=== PATIENT | female | born 1955 | race Caucasian/White ===

== ENCOUNTER → 2024-02-13 07:55 | Outpatient (REF) | payer MEDICARE, OTHER, SELFPAY | LOC: WDC 07:55 | PROVIDERS: ATTENDING PHYSICIAN Nurse Practitioner Adult Health | DX: Z12.31 Encounter for screening mammogram for malignant neoplasm of breast (principal) | CPT/HCPCS: 77063; 77067 ==

== ENCOUNTER → 2024-05-08 07:01 | Outpatient (REF) | payer MEDICARE, OTHER, SELFPAY | LOC: HWRCS 07:01 | PROVIDERS: ATTENDING PHYSICIAN Nurse Practitioner | DX: R55 Syncope and collapse (principal) | CPT/HCPCS: 93306 ==

== ENCOUNTER → 2024-05-14 08:10 | Outpatient (REF) | payer MEDICARE, OTHER, SELFPAY | LOC: RCS 08:10 | PROVIDERS: ATTENDING PHYSICIAN Nurse Practitioner | DX: R55 Syncope and collapse (principal) | CPT/HCPCS: 93225; 93226 ==

== ENCOUNTER 2025-01-20 07:46 | Emergency (ER) | payer MEDICARE, OTHER, SELFPAY ==
[2025-01-20 07:50] VITALS: BP 141/81
[2025-01-20 09:09] VITALS: BMI 23.0
--- NOTE | 2025-01-20 09:40 | ED.GENMED ---
History of Present Illness
General
Chief Complaint: Eye Problems
Source: patient
Exam Limitations: none
Time Seen by Provider: 01/20/25 09:00
Nursing documentation reviewed up to this point in time: agreed with
History of Present Illness
History of Present Illness:
69 yo female with no clinically significant past medical history reports experiencing pain over her left eyebrow, which began a couple of weeks ago. The pain initially was thought to be sinus-related, as it radiated upwards from the left side of
her nose but concentrated around the eyebrow and upper eyelid. She describes the pain as being particularly intense near the eyebrow. Over the December weekend, the patient experienced swelling and itchiness on her eyelid, for which she saw
her general practitioner. The practitioner recommended the application of 1% hydrocortisone cream and Zyrtec, which successfully resolved the eyelid symptoms. However, the eyebrow pain persisted.
Yesterday, at a constitution party, the patient developed eyeball pain and photophobia affecting both the eye itself and the periorbital area. This morning, she likened the sensation to having previously scratched her cornea, although the itchy and scratched
feelings have resolved. She reports discomfort in the muscles surrounding her eye and notes that her pupil is smaller than usual. Vision is reportedly altered, with light appearing less bright in the affected eye compared to the other.
The patient denies recent changes in visual acuity but reports discomfort with eye movements, similar to muscle ache.
Past History
Past History
ED Past Medical History: None
ED Past Surgical History: Tonsilectomy and Urological
Social History
Tobacco: Non-smoker
Personal:
Living: with family
Employment: Employed
Review of Systems
Review of Systems
Allergies reviewed?: Yes
All Other Systems: ROS reviewed and negative except as documented in HPI and ROS
Constitutional: Denies fever
EENT: Reports other (redness, irritation left eye)
ABD/GI: Denies nausea
Phy Exam
Physical Exam
Physical Exam:
PHYSICAL EXAMINATION:
General: no apparent distress, not acutely ill
Neuro: alert and oriented.
Psychiatric: well kept. interactive and cooperative
Musculoskeletal: Moves with ease
Skin: Warm, pink.
Eye Exam
Eye Exam: PERRL, EOMI, globe normal, visual acuity normal, visual soriano normal and other (Fluorescein stain reveals small corneal abrasion 7 o'clock. Periorbital skin is normal, no significant swelling. Mildly tender to palpate upper eyelid, lid
everted, normal. )
Course
Orders/Labs/Results
Orders:
Orders
01/20/25 09:40
Visual Acuity- Treatment ONCE
01/20/25 10:58
Fluorescein Sodium [Ful-Maude] 1 mg .ROUTE .STK-MED ONE
Tetracaine HCl [Tetracaine 0.5% Ophthalmic Solution] 1 drop .ROUTE .STK-MED ONE
01/20/25 11:03
Ofloxacin [Ocuflox] 2 drop LEFT EYE NOW STA
Vital Signs
Initial and Last Documented VS:
Initial Vital Signs
Temp Pulse Resp BP Pulse Ox
97.8 F 57 16 141/81 99
01/20/25 07:50 01/20/25 07:50 01/20/25 07:50 01/20/25 07:50 01/20/25 07:50
Last Documented Vital Signs
Temp Pulse Resp BP Pulse Ox
97.8 F 57 16 141/81 99
01/20/25 07:50 01/20/25 07:50 01/20/25 07:50 01/20/25 07:50 01/20/25 09:40
MDM/Problems Addressed
Differential Diagnosis Includes:
1. Sinusitis
2. Orbital cellulitis
3. Anterior uveitis
4. Corneal abrasion
5. Thyroid eye disease
6. Herpes zoster ophthalmicus
MDM/Problems Addressed:
69 yo female with no clinically significant past medical history reports experiencing pain over her left eyebrow, which began a couple of weeks ago. The pain initially was thought to be sinus-related, as it radiated upwards from the left side of
her nose but concentrated around the eyebrow and upper eyelid. She describes the pain as being particularly intense near the eyebrow. Over the December weekend, the patient experienced swelling and itchiness on her eyelid, for which she saw
her general practitioner. The practitioner recommended the application of 1% hydrocortisone cream and Zyrtec, which successfully resolved the eyelid symptoms. However, the eyebrow pain persisted.
Yesterday, at a constitution party, the patient developed eyeball pain and photophobia affecting both the eye itself and the periorbital area. This morning, she likened the sensation to having previously scratched her cornea, although the itchy and scratched
feelings have resolved. She reports discomfort in the muscles surrounding her eye and notes that her pupil is smaller than usual. Vision is reportedly altered, with light appearing less bright in the affected eye compared to the other.
The patient denies recent changes in visual acuity but reports discomfort with eye movements, similar to muscle ache.
Visual acuity normal
Tonopen pressure: 10 mm and 3 mm Hg (normal)
Fluorescein stain reveals small linear corneal abrasion at 7 o'clock
The irritation of her eyelid previously she most likely rubbed her eye and caused a corneal abrasion.
Plan: Discharge with antibiotic eyedrops, she has an eye doctor (Alysa) she will follow-up with.
Reassuring exam: no eyeball pain with EOMs, There is no sign of preseptal or orbital cellulitis. No notable swelling, Visual acuity normal and corneal abrasion to explain symptoms
*Pulse Oximetry
SaO2: 99
Oxygen Mode of Delivery: Room air
Patient hypoxic: not evaluated
*Critical Care Note
Total Time (30-74mins, 75-104mins- exclusive of procedures): Not Applicable
ED Attending Note
-
Portions of this chart may have been created with voice recognition software.� Occasional wrong word or��sound alike� substitutions may have occurred due to the inherent limitations of voice recognition software.
Discharge Plan
Departure
Patient Disposition: Home (Routine Discharge)
Date of Disposition: 01/20/25
Time of Disposition: 10:38
Patient with high blood pressure during this ER visit?: No
Condition: Good
Discharge Problem:
Abrasion of left cornea
Instructions: Corneal Abrasion (DC), How to Use Eye Drops
Referrals:
Dr. Watt, Ophthalmology [Other] - Follow up in 2-3 days
Capri Walton CRNP [Family Provider, Family Practice]
Activity Restrictions/Additional Instructions:
As we discussed, you have a corneal abrasion.
Use the eyedrops as follows: 1 to 2 drops in lower lid 4 times a day for 3 to 5 days.
See your eye doctor in 2 days if your eye is not much improved by then
Ibuprofen 600 mg (with food) every 6 hours as needed for pain
Return here immediately for worsening eye pain, loss of vision, headache or feeling worse in any
Interventions
Interventions:
*Risk Screen - Suicide Last Done: 01/20/25 07:50
*General Assessment Last Done: 01/20/25 09:10
*Neglect/Abuse Screening Last Done: 01/20/25 07:50
*ED- Fall Risk Assessment Last Done: 01/20/25 09:10
*ED COVID-19 Vaccine History Last Done: 01/20/25 09:10
*Nursing Disposition Last Done: 01/20/25 12:00
Discharge Date and Time
Discharge Date/Time: 01/20/25 12:00
Print Language: MACEDONIAN
[2025-01-20] MEDS: OCUFLOX 2 DROP LEFT EYE (12:06)
== END 2025-01-20 12:00 | disposition home or self-care (01) ==
LOC: EMR 07:46
PROVIDERS: EMERGENCY PHYSICIAN Emergency Medicine; FAMILY PHYSICIAN Nurse Practitioner
DX: S05.02XA Injury of conjunctiva and corneal abrasion without foreign body, left eye, initial encounter (principal); X58.XXXA Exposure to other specified factors, initial encounter
CPT/HCPCS: 99283

== ENCOUNTER → 2025-05-21 14:12 | Outpatient (REF) | payer MEDICARE, OTHER, SELFPAY | LOC: HWWDC 14:12 | PROVIDERS: ATTENDING PHYSICIAN Nurse Practitioner Adult Health; FAMILY PHYSICIAN Nurse Practitioner | DX: Z12.31 Encounter for screening mammogram for malignant neoplasm of breast (principal) | CPT/HCPCS: 77063; 77067 ==